=== PATIENT | female | born 2000 | race Caucasian/White ===

== ENCOUNTER 2023-11-23 11:30 | Day surgery (SDC) | payer OTHER ==
[~2023-11-23 11:30] MED LIST: ACETAMINOPHEN TAB 500 MG TAB ONE; DEXAMETHASONE SOD PHOSPHATE 4 MG/ML 1 ML VIAL ONE; HEPARIN SODIUM,PORCINE 5,000 UNIT/ML 1 ML VIAL ONE; LACTATED RINGERS 1,000 ML BAG ONE; ONDANSETRON 4 MG/2 ML VIAL ONE; SCOPOLAMINE 1 MG/72 HR PATCH TRANSDERM ONE
[2023-11-23] MEDS ORDERED: diphenhydrAMINE 50 MG/ML 1 ML VIAL ONE (12:15)
[2023-11-23] MEDS ORDERED: ceFAZolin 1 GM/50 ML BAG (PMX) ONE (12:15)
[2023-11-23] MEDS ORDERED: MIDAZOLAM 2 MG/2 ML VIAL ONE (12:15)
[2023-11-23] MEDS ORDERED: SUCCINYLCHOLINE CHLORIDE 200 MG/10 ML VIAL IV ONE (12:15)
[2023-11-23] MEDS ORDERED: fentaNYL (PF) 50 MCG/ML 2 ML AMP ONE (12:15)
[2023-11-23] MEDS ORDERED: ROCURONIUM 10 MG/ML (5 ML VIAL) IV ONE (12:15)
[2023-11-23] MEDS ORDERED: NEOSTIGMINE 1 MG/ML 10 ML VIAL ONE (12:15)
[2023-11-23] MEDS ORDERED: LIDOCAINE 1% INJ 10MG/ML (20 ML MDV) ONE (12:15)
[2023-11-23] MEDS ORDERED: GLYCOPYRROLATE 0.2 MG/ML 2 ML VIAL ONE (12:15)
[2023-11-23] MEDS ORDERED: PROPOFOL 10 MG/ML 20 ML VIAL IV ONE (12:15)
[2023-11-23] MEDS ORDERED: KETOROLAC 15 MG/ML 1 ML VIAL ONE (12:15)
[2023-11-23] MEDS ORDERED: LACTATED RINGERS 1,000 ML BAG ONE (12:20)
[2023-11-23] MEDS ORDERED: LIDOCAINE 2%-EPI 1:100,000 20 ML VIAL ONE (12:20)
[2023-11-23] MEDS ORDERED: SODIUM CHLORIDE 0.9% 100 ML BAG IV ONE (12:22)
[2023-11-23] MEDS ORDERED: ceFAZolin 1,000 MG VIAL ONE (12:22)
[2023-11-23] MEDS ORDERED: HYDROmorphone 0.5 MG/0.5 ML SYRINGE ONE ×2 (13:57→14:30)
== END 2023-11-23 16:21 | disposition home or self-care (01) ==
LOC: OR 11:30
PROVIDERS: ATTEND Surgery Plastic and Reconstructive Surgery
DX: K81.1 Chronic cholecystitis
CPT/HCPCS: 81025; 88304